=== PATIENT | female | born 1990 | race Caucasian/White ===

== ENCOUNTER 2017-11-18 11:00 | Emergency (ER) | payer BC ==
[2017-11-18 11:16] VITALS: BP 132/90; PULSE 77; RESP 16; TEMP 98; O2SAT 99
--- NOTE | 2017-11-18 11:55 | C.PDOC ---
History Of Present Illness 27 year old female presents to the ED with c/o new onset facial and neck lesions since yesterday. Patient states initially the area was a "brown patch" to her left cheek, s/p sun exposure and sea water. Patient states she applied topical steroid. Patient now has lesions to her cheek and neck, with new onset blistering this morning. Patient is c/o burning to the area. Reports she has sensitive skin. NEW ONSET FACIAL AND NECK LESIONS SINCE YEST. PS INITIALLY "BROWN PATCH" ON L CHEEK, S/P SUN EXPOSURE, SEA WATER. PS APPLIED TOPICAL STEROID. NOW W LESIONS ON CHEEK AND NECK, NEW ONSET BLISTERING THIS MORNING. CO BURNING TO AREA. + SENSITIVE SKIN. EXAM NAD NONTOXIC SKIN MULTIPLE PATCHES W CLEAR VESICLES CHIN, L CHEEK AND NECK. +YELLOW CRUSTING. REMAINDER NEG Time Seen by Provider: 11/18/17 11:26 Chief Complaint (Nursing): Abnormal Skin Integrity History Per: Patient History/Exam Limitations: no limitations Onset/Duration Of Symptoms: Hrs Current Symptoms Are (Timing): Still Present Location Of Injury: Left: Face (cheek ) Quality Of Symptoms: Other (burning ) Additional History Per: Patient Past Medical History Reviewed: Historical Data, Nursing Documentation, Vital Signs Vital Signs: Last Vital Signs Temp 98 F 11/18/17 11:14 Pulse 77 11/18/17 11:14 Resp 16 11/18/17 11:14 BP 132/90 11/18/17 11:14 Pulse Ox 99 11/18/17 12:12 - Medical History PMH: No Chronic Diseases Surgical History: No Surg Hx Family History: States: Unknown Family Hx - Social History Hx Tobacco Use: No Hx Alcohol Use: No Hx Substance Use: No - Immunization History Hx Tetanus Toxoid Vaccination: Yes Hx Influenza Vaccination: No Hx Pneumococcal Vaccination: No Review Of Systems Skin: Positive for: Other (lesions to cheek and neck ) Physical Exam - Physical Exam Appears: Non-toxic, No Acute Distress Skin: Normal Color, Warm, Dry, Other (multiple patches with clear vesicles to chin, left cheek and neck. +yellow crusting ) Head: Atraumatic, Normacephalic Eye(s): bilateral: Normal Inspection Oral Mucosa: Moist Neck: Supple Neurological/Psych: Oriented x3, Normal Speech, Normal Cognition ED Course And Treatment O2 Sat by Pulse Oximetry: 99 (on RA) Pulse Ox Interpretation: Normal - Physician Consult Information Time Consulting Physician Contacted: 11:55 Physician Contacted: Yamilet Weiss Outcome Of Conversation: ADVISES VALTREX, KEFLEX WILL FU CLINIC TOMORROW Disposition Counseled Patient/Family Regarding: Diagnosis, Need For Followup, Rx Given - Disposition Referrals: [facility] [Outside] [facility] [Outside] Yamilet Weiss MD [Staff Provider] - Disposition: HOME/ ROUTINE Disposition Time: 11:56 Condition: GOOD Prescriptions: Cephalexin [Keflex] 500 mg PO BID #14 cap valACYclovir [Valtrex] 1 gm PO TID #21 tab Instructions: Skin Rash (DC) Forms: [facility] (Turkish), Work Excuse - Clinical Impression Clinical Impression: Dermatitis - Scribe Statement The provider has reviewed the documentation as recorded by the Scribe (Edwina Hensley) Provider Attestation: All medical record entries made by the Scribe were at my direction and personally dictated by me. I have reviewed the chart and agree that the record accurately reflects my personal performance of the history, physical exam, medical decision making, and the department course for this patient. I have also personally directed, reviewed, and agree with the discharge instructions and disposition.
== END 2017-11-18 12:05 | disposition home or self-care (01) ==
LOC: C.ER 11:00
DX: L30.9 Dermatitis, unspecified (principal)

== ENCOUNTER 2018-09-12 11:08 | Emergency (ER) | payer BC, OTHER ==
[2018-09-12 11:17] VITALS: BMI 20.5
--- NOTE | 2018-09-12 12:39 | C.PDOC ---
History Of Present Illness 27 year old female presents to the ED complaining of headache for 5 days. Reports she woke up with sudden onset of headache described as a pressure-like pain over the forehead and worsened when bending forward. States she was seen at [facility] 2 days ago and diagnosed with Step Throat and was prescribed Cefdinir and Levocetirizine. Notes that the medications relieved the ear pain and throat pain, but now she has cough and still has the headache. Reports she has been taking Sudafed and other OTC medications with minimal relief. Denies any fever, chills, nausea, vomiting, diarrhea, dizziness, lightheadedness, abdominal pain, weakness, numbness, changes in vision, or any other complaints. Time Seen by Provider: 09/12/18 11:46 Chief Complaint (Nursing): Headache History Per: Patient History/Exam Limitations: no limitations Onset/Duration Of Symptoms: Days Current Symptoms Are (Timing): Still Present Quality: Pressure Associated Symptoms: denies: Blurred Vision, Nausea, Vomiting, Extremity Weakness Past Medical History Reviewed: Historical Data, Nursing Documentation, Vital Signs Vital Signs: Last Vital Signs Temp 99 F 09/12/18 11:17 Pulse 82 09/12/18 11:17 Resp 16 09/12/18 11:17 BP 121/88 09/12/18 11:17 Pulse Ox 100 09/12/18 11:17 - Medical History PMH: No Chronic Diseases Other Surgeries: Hx of surgeries Family History: States: No Known Family Hx - Social History Hx Tobacco Use: No Hx Alcohol Use: No Hx Substance Use: No - Immunization History Hx Tetanus Toxoid Vaccination: Yes Hx Influenza Vaccination: No Hx Pneumococcal Vaccination: No Review Of Systems Except As Marked, All Systems Reviewed And Found Negative. Constitutional: Negative for: Fever, Chills Eyes: Negative for: Vision Change Respiratory: Positive for: Cough. Negative for: Shortness of Breath Gastrointestinal: Negative for: Nausea, Vomiting, Abdominal Pain, Diarrhea Neurological: Positive for: Headache. Negative for: Weakness, Numbness Physical Exam - Physical Exam Appears: Non-toxic, No Acute Distress Skin: Warm, Dry, No Rash Head: Normacephalic, Tenderness (bilateral frontal sinus tenderness ) Eye(s): bilateral: Normal Inspection Nose: Normal Oral Mucosa: Moist Tongue: Normal Appearing Lips: Normal Appearing Throat: No Erythema, No Exudate Neck: Supple Chest: Symmetrical Cardiovascular: Rhythm Regular Respiratory: Normal Breath Sounds, No Rales, No Rhonchi, No Wheezing Gastrointestinal/Abdominal: Soft, No Tenderness Extremity: Bilateral: Normal Color And Temperature, Normal ROM Neurological/Psych: Oriented x3, Normal Speech Gait: Steady ED Course And Treatment O2 Sat by Pulse Oximetry: 100 (RA) Pulse Ox Interpretation: Normal Medical Decision Making Medical Decision Making: Plan - Prednisone 40mg PO On re-examination, patient is resting comfortably in no acute distress. Patient reports feeling better. Patient given follow up instructions. Instructed to return to ER if symptoms worsen or new symptoms arise. Disposition - Disposition Referrals: [facility] [Outside] Disposition: HOME/ ROUTINE Disposition Time: 13:16 Condition: GOOD Additional Instructions: Follow up with the medical doctor within 1-2 days. Return if worsened. 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 - Scribe Statement The provider has reviewed the documentation as recorded by the Scribe Genevieve No All medical record entries made by the Joseibalberto were at my direction and personally dictated by me. I have reviewed the chart and agree that the record accurately reflects my personal performance of the history, physical exam, medical decision making, and the department course for this patient. I have also personally directed, reviewed, and agree with the discharge instructions and disposition.
[2018-09-12 13:23] VITALS: BP 112/81; PULSE 85; RESP 18; TEMP 98.5
[2018-09-12 23:11] VITALS: O2SAT 100
== END 2018-09-12 13:23 | disposition home or self-care (01) ==
LOC: C.ER 11:08
DX: J32.9 Chronic sinusitis, unspecified (principal)